=== PATIENT | female | born 1955 | race Asian ===

== ENCOUNTER 2017-05-22 06:41 | Day surgery (SDC) | payer OTHER ==
[2017-05-22] MEDS ORDERED: FENTAnyl 50 MCG/ML VIAL (08:56)
[2017-05-22] MEDS ORDERED: HYDROmorphONE (0.2 MG/ML) 10ML SYG IV ×3 (09:00)
[2017-05-22] MEDS ORDERED: FENTAnyl 50 MCG/ML VIAL IV (09:00)
[2017-05-22] MEDS ORDERED: MEPERIDINE 25 MG INJ IV (09:00)
[2017-05-22] MEDS ORDERED: METOCLOPRAMIDE 10 MG INJ IV (09:00)
[2017-05-22] MEDS ORDERED: PROPOFOL 20 ML (09:26)
[2017-05-22] MEDS ORDERED: LIDOCAINE 2% (SDV) 5 ML INJ (09:26)
[2017-05-22] MEDS: ONDANSETRON 4 MG INJ IV (09:29)
[2017-05-22] MEDS: FENTAnyl 50 MCG/ML VIAL IV ×2 (09:29→09:43)
[2017-05-22] MEDS ORDERED: HYDROCODONE/APAP (5/325) TAB PO (09:30)
[2017-05-22] MEDS ORDERED: ONDANSETRON 4 MG INJ IV (09:30)
[2017-05-22] MEDS: DIPHENHYDRAMINE 50 MG INJ IV (09:30)
[2017-05-22] MEDS: HYDROCODONE/APAP (5/325) TAB PO (09:57)
== END 2017-05-22 12:22 | disposition home or self-care (01) ==
LOC: SDS 06:41
DX: M25.461 Effusion, right knee (principal); I10 Essential (primary) hypertension
CPT/HCPCS: 27570; 73560